=== PATIENT | female | born 1960 | race Caucasian/White ===

== ENCOUNTER 2019-04-06 09:32 | Inpatient (IN) ==
[2019-04-06] MEDS ORDERED: HYDROmorphone 2 MG/1 ML VIAL IV STA (10:05)
[2019-04-06] MEDS ORDERED: ONDANSETRON 4 MG/2 ML VIAL IV STA (10:05)
[2019-04-06] MEDS ORDERED: PIPERACILLIN/TAZOBACTAM 3,375 MG in SODIUM CHLORIDE 0.9% 100 ML IV STA (11:04)
[2019-04-06] MEDS ORDERED: ONDANSETRON 4 MG/2 ML VIAL IV PRN (11:09)
[2019-04-06] MEDS ORDERED: ACETAMINOPHEN 325 MG TABLET PO PRN (11:09)
[2019-04-06 11:17] LABS: Albumin 3.6 G/DL (3.4-5.0); Bilirubin,Direct 0.14 MG/DL (0.0-0.20); Bilirubin,Indirect 0.4 MG/DL (0.0-1.0); Bilirubin,Total 0.5 MG/DL (0.2-1.0); Total Protein 7.1 G/DL (6.4-8.3)
[2019-04-06] MEDS ORDERED: DEXTROSE 5% LACTATED RINGERS 1,000 ML IV SCH (11:30)
[2019-04-06] MEDS: HYDROmorphone 2 MG/1 ML VIAL IV PRN ×2 (15:15→20:47)
[2019-04-06] MEDS ORDERED: DOCUSATE SODIUM 100 MG CAPSULE PO PRN (15:58)
[2019-04-06] MEDS: CITALOPRAM 20 MG TABLET PO SCH (17:01)
[2019-04-06] MEDS: PANTOPRAZOLE 40 MG TABLET PO SCH (17:01)
[2019-04-06] MEDS: FERROUS SULFATE 325 MG TABLET PO SCH (17:01)
[2019-04-06] MEDS: ASCORBIC ACID 500 MG TABLET PO SCH (18:46)
[2019-04-06] MEDS: PIPERACILLIN/TAZOBACTAM 3,375 MG in SODIUM CHLORIDE 0.9% 100 ML IV SCH (20:47)
[2019-04-07] MEDS: PIPERACILLIN/TAZOBACTAM 3,375 MG in SODIUM CHLORIDE 0.9% 100 ML IV SCH ×3 (03:51→20:51)
[2019-04-07 05:38] LABS: Albumin 3.3 G/DL (3.4-5.0); Bilirubin,Direct 0.16 MG/DL (0.0-0.20); Bilirubin,Indirect 1.1 MG/DL (0.0-1.0); Bilirubin,Total 1.3 MG/DL (0.2-1.0); Total Protein 6.4 G/DL (6.4-8.3)
[2019-04-07 05:40] LABS: Albumin 3.4 G/DL (3.4-5.0); Bilirubin,Total 0.9 MG/DL (0.2-1.0); Calcium 8.6 MG/DL (8.5-10.1); Osmolality,Calculated 281.3 MOS/KG (273-304); Total Protein 6.4 G/DL (6.4-8.3)
[2019-04-07] MEDS: LEVOTHYROXINE 125 MCG TABLET PO SCH (06:16)
[2019-04-07] MEDS: HYDROmorphone 2 MG/1 ML VIAL IV PRN ×7 (06:16→23:23)
[2019-04-07] MEDS: ENOXAPARIN 40 MG/0.4 ML SYRINGE SUBCUT SCH (09:06)
[2019-04-07] MEDS ORDERED: BUPIVACAINE MPF 0.25% 30 ML VIAL ONE (09:40)
[2019-04-07] MEDS ORDERED: LIDOCAINE 1%/EPI INJ 20 ML VIAL ONE (09:40)
[2019-04-07] MEDS ORDERED: PROPOFOL 200 MG/20 ML VIAL IV ONE (10:52)
[2019-04-07] MEDS ORDERED: fentaNYL 100 MCG/2 ML VIAL ONE (10:52)
[2019-04-07] MEDS ORDERED: LIDOCAINE 2% 5 ML VIAL ONE (10:52)
[2019-04-07] MEDS ORDERED: ePHEDrine 50 MG/ML AMP ONE (10:52)
[2019-04-07] MEDS ORDERED: SEVOFLURANE 1 UNIT/15 MINUTE INH ONE (10:52)
[2019-04-07] MEDS ORDERED: MIDAZOLAM 2 MG/2 ML VIAL ONE (10:52)
[2019-04-07] MEDS ORDERED: NEOSTIGMINE 10 MG/10 ML VIAL ONE (10:53)
[2019-04-07] MEDS ORDERED: ONDANSETRON 4 MG/2 ML VIAL ONE (10:53)
[2019-04-07] MEDS ORDERED: ROCURONIUM 100 MG/10 ML VIAL IV ONE (10:53)
[2019-04-07] MEDS ORDERED: DEXAMETHASONE 4 MG/1 ML VIAL ONE (10:53)
[2019-04-07] MEDS ORDERED: KETOROLAC 30 MG/1 ML VIAL ONE (10:53)
[2019-04-07] MEDS ORDERED: SUCCINYLCHOLINE 200 MG/10 ML VIAL ONE (10:53)
[2019-04-07] MEDS ORDERED: GLYCOPYRROLATE 0.4 MG/2 ML VIAL ONE (10:53)
[2019-04-07] MEDS ORDERED: SODIUM CHLORIDE 0.9% 1,000 ML IV ONE (10:53)
[2019-04-07] MEDS ORDERED: HYDROmorphone 2 MG/1 ML VIAL ONE (10:58)
[2019-04-07] MEDS: PANTOPRAZOLE 40 MG TABLET PO SCH (12:20)
[2019-04-07] MEDS: ASCORBIC ACID 500 MG TABLET PO SCH (12:20)
[2019-04-07] MEDS: CITALOPRAM 20 MG TABLET PO SCH (12:21)
[2019-04-07] MEDS: FERROUS SULFATE 325 MG TABLET PO SCH (12:21)
[2019-04-08] MEDS: PIPERACILLIN/TAZOBACTAM 3,375 MG in SODIUM CHLORIDE 0.9% 100 ML IV SCH (03:32)
[2019-04-08] MEDS: HYDROmorphone 2 MG/1 ML VIAL IV PRN (03:35)
[2019-04-08] MEDS: LEVOTHYROXINE 125 MCG TABLET PO SCH (06:10)
[2019-04-08 07:45] VITALS: BP 108/59
[2019-04-08] MEDS: CITALOPRAM 20 MG TABLET PO SCH (08:48)
[2019-04-08] MEDS: ASCORBIC ACID 500 MG TABLET PO SCH (08:48)
[2019-04-08] MEDS: ENOXAPARIN 40 MG/0.4 ML SYRINGE SUBCUT SCH (08:48)
[2019-04-08] MEDS: PANTOPRAZOLE 40 MG TABLET PO SCH (08:49)
[2019-04-08] MEDS: FERROUS SULFATE 325 MG TABLET PO SCH (08:49)
== END 2019-04-08 11:34 | disposition home or self-care (01) | DRG 419 ==
LOC: EDUNIT# → EDBD → N.ED 09:32 → N.EDINP 11:09 → N.2E 11:51
PROVIDERS: ADMIT Surgery; ATTEND Surgery
PROC: LAPCHOL (2019-04-07 09:30)